=== PATIENT | female | born 1980 | race American Indian/Alaskan Native ===

== ENCOUNTER 2018-08-30 16:51 | Outpatient (CLI) | payer OTHER ==
[2018-08-31] MEDS ORDERED: PANTOPRAZOLE SO40 MG PO (14:26)
[2018-08-31] MEDS ORDERED: KEFLEX500 MG PO (14:27)
== END 2018-08-31 16:47 | disposition home or self-care (01) ==
LOC: OBS/DEL 16:51
DX: O23.43 Unspecified infection of urinary tract in pregnancy, third trimester (principal); O35.8XX0 Maternal care for other (suspected) fetal abnormality and damage, not applicable or unspecified; Z34.83 Encounter for supervision of other normal pregnancy, third trimester

== ENCOUNTER 2018-09-21 12:30 | Inpatient (IN) | payer OTHER ==
[~2018-09-21] VITALS: Ht 160 cm; Wt 2.3 kg
[~2018-09-21 12:30] MED LIST: KEFLEX500 MG PO; PANTOPRAZOLE SO40 MG PO
[2018-10-01] MEDS ORDERED: PRENATAL + DHA1 EAC1 (14:24)
[2018-10-12] MEDS ORDERED: DOCUSATE SODIU100 MG PO (14:16)
[2018-10-12] MEDS ORDERED: Tylenol Extra Streng PO (14:16)
[2018-10-12] MEDS ORDERED: HYDROCORTISO453.6 G1 RECTAL (14:17)
[2018-10-12] MEDS ORDERED: GAS RELIEF125 MG PO (14:17)
== END 2018-10-12 14:53 | DRG 785 ==
LOC: OB/GYN 10-01 12:30 → O/R 10-08 07:17 → OB/GYN 10-08 11:49
PROVIDERS: ADMIT Obstetrics & Gynecology
PROC: 4A1HXCZ Monitoring of Products of Conception, Cardiac Rate, External Approach (ICD-10-PCS; 2018-10-08)
PROC: 0UB70ZZ Excision of Bilateral Fallopian Tubes, Open Approach (ICD-10-PCS; 2018-10-08)
PROC: 10D00Z1 Extraction of Products of Conception, Low, Open Approach (ICD-10-PCS; principal; 2018-10-08 07:00)
DX: O34.211 Maternal care for low transverse scar from previous cesarean delivery (principal); O75.82 Onset (spontaneous) of labor after 37 completed weeks of gestation but before 39 completed weeks gestation, with delivery by (planned) cesarean section; O82 Encounter for cesarean delivery without indication; Z3A.39 39 weeks gestation of pregnancy; Z37.0 Single live birth; Z30.2 Encounter for sterilization